=== PATIENT | female | born 1950 | race Caucasian/White ===

== ENCOUNTER 2020-06-17 18:13 | Inpatient (IN) | payer MEDICARE ==
[~2020-06-17] VITALS: Ht 167.6 cm; Wt 104.8 kg
[2020-06-17] MEDS ORDERED: FAMOTIDINE20 MG PO (21:24)
[2020-06-17] MEDS ORDERED: ATORVASTATIN CA80 MG PO (21:24)
[2020-06-17] MEDS ORDERED: LISINOPRIL10 MG PO (21:25)
[2020-06-17] MEDS ORDERED: TIZANIDINE HCL4 MG PO (21:25)
[2020-06-17] MEDS ORDERED: OXYCODONE HCL30 MG PO (21:26)
[2020-06-17] MEDS ORDERED: AMITIZA24 MCG PO (21:26)
[2020-06-17] MEDS ORDERED: PROZAC 20 MG CA20 MG PO (21:28)
[2020-06-17] MEDS ORDERED: MORPHINE SULFAT60 M1 PO (21:30)
[2020-06-17] MEDS ORDERED: PREGABALIN300 MG PO (21:31)
[2020-06-17] MEDS ORDERED: ELMIRON 100 MG100 MG PO (21:32)
[2020-06-17] MEDS ORDERED: LUBIPROSTONE24 MCG PO (21:33)
[2020-06-18 14:01] LABS: HEMOGLOBIN 9.4 gm/dl (12.3-15.3); RED BLOOD COUNT 3.2 M/UL (4.00-5.10); WHITE BLOOD COUNT 6.1 K/UL (4.5-11.0)
[2020-06-18 14:21] LABS: BUN/CREATININE RATIO 25 (0-10)
[2020-06-19 03:53] LABS: HEMOGLOBIN 8.6 gm/dl (12.3-15.3); RED BLOOD COUNT 2.92 M/UL (4.00-5.10); WHITE BLOOD COUNT 6.3 K/UL (4.5-11.0)
[2020-06-19 04:02] LABS: BUN/CREATININE RATIO 21 (0-10)
--- NOTE | 2020-06-19 15:27 | NUR ---
1235 Patient returned to room per PACU Staff. Respirations even/unlabored. O2 sat 99%, 02 in use at 2L/m per N/C. Skin color pale, warm/dry to touch. Surgical dressing dry/intact to RLE. Patient sleepy, but arouses easily. No c/o pain voiced at this time. Call light in reach.
[2020-06-20 07:20] LABS: RED BLOOD COUNT 2.14 M/UL (4.00-5.10)
[2020-06-20 07:41] LABS: BUN/CREATININE RATIO 24 (0-10)
[2020-06-20 08:08] LABS: RED BLOOD COUNT 2.11 M/UL (4.00-5.10); WHITE BLOOD COUNT 6.6 K/UL (4.5-11.0)
[2020-06-20 08:14] LABS: HEMOGLOBIN 6.2 gm/dl (12.3-15.3)
[2020-06-21 02:35] LABS: HEMOGLOBIN 7.8 gm/dl (12.3-15.3); RED BLOOD COUNT 2.64 M/UL (4.00-5.10); WHITE BLOOD COUNT 7.3 K/UL (4.5-11.0)
[2020-06-21 02:54] LABS: BUN/CREATININE RATIO 17 (0-10)
[2020-06-22 03:07] LABS: HEMOGLOBIN 8.1 gm/dl (12.3-15.3); RED BLOOD COUNT 2.74 M/UL (4.00-5.10); WHITE BLOOD COUNT 8.3 K/UL (4.5-11.0)
--- NOTE | 2020-06-23 02:17 | NUR ---
ONE WHITE PILL FOUND IN ROOM BY THE PATIENT'S BED ON THE FLOOR BY FABI SAHU. IDENTIFIED PERCOCET 10MG. CALLED PHARMACY AND THEY INFORMED ME THAT THEY DO NOT CARRY 10MG PERCOCET. OSVALDO JAMIL WITNESSED PILL AT THE SAME TIME THIS RN FOUND OUT ABOUT PILL. PATIENT STATED SHE DID NOT HAVE ANY OF HER HOME MEDICATION ON HER AND SHE ALSO STATED THAT SHE DOES NOT TAKE PERCOCET. NO RECORD OF MEDICATIONS BEING PLACED IN PHARMACY UPON PATIENT ARRIVAL TO THE HOSPITAL. PHARMACY NOTIFIED. MEDICATION DISCARDED IN THE CACTUS WITH OMERO RILEY WITNESS.
[2020-06-23 06:12] LABS: RED BLOOD COUNT 2.33 M/UL (4.00-5.10); WHITE BLOOD COUNT 5.9 K/UL (4.5-11.0)
[2020-06-23 06:13] LABS: HEMOGLOBIN 6.8 gm/dl (12.3-15.3)
[2020-06-23 06:16] LABS: BUN/CREATININE RATIO 16 (0-10)
[2020-06-24 01:52] LABS: HEMOGLOBIN 8.5 gm/dl (12.3-15.3); WHITE BLOOD COUNT 6.8 K/UL (4.5-11.0)
[2020-06-24 02:09] LABS: BUN/CREATININE RATIO 18 (0-10)
--- NOTE | 2020-06-24 03:07 | NUR ---
LATE ENTRY 1829 ON 06/23/20- DAYSHIFT NURSE FRANCIA CALLED DR. ALEXANDRE ABOUT PT TEMPERATURE POST TRANSFUSION. SHE INFORMED HIM SHE GAVE THE PATIENT TYLENOL. LATE ENTRY 1909- PLACED BLOOD TRANSFUSION PAPER IN TUBE SYSTEM AND SENT TO LAB AFTER 1 HOUR POST TRANSFUSION VITAL OBTAINED. WAS UNAWARE THAT LAB WAS NOT NOTIFIED ABOUT SUSPECTED BLOOD TRANSFUSION REACTION DUE TO INCREASE IN TEMPERATURE. 1 HOUR POST TRANSFUSION VITALS SHOWS DECREASE IN TEMPERATURE. 0148 ON 06/24/20- LAB CALLED STATED THEY FOUND THE BLOOD TRANSFUSION PAPER AND THEY NOTED THE SUSPECTED BLOOD TRANSFUSION REACTION. COLLECTED URINE FROM PATIENT AND LAB CAME UP AND COLLECTED BLOOD FROM THE PATIENT. THE UNIT IN QUESTION WAS COLLECTED FROM IV POLE IN PATIENTS ROOM AND SENT DOWN WITH LAB. 0255 ON 06/24/20- NOTIFIED WARD MAID REGARDING THE ISSUE (MENTIONED ABOVE).
[2020-06-24] MEDS ORDERED: OXYCODONE HCL30 MG PO (12:17)
== END 2020-06-24 16:50 | disposition home health service (06) | DRG 467 ==
LOC: M/S 21:18
PROVIDERS: Internal Medicine; Orthopaedic Surgery; ADMIT Family Medicine
PROC: 0SPC0JZ Removal of Synthetic Substitute from Right Knee Joint, Open Approach (ICD-10-PCS; 2020-06-19)
PROC: 0SRC0JA Replacement of Right Knee Joint with Synthetic Substitute, Uncemented, Open Approach (ICD-10-PCS; principal; 2020-06-19 07:30)
DX: S72.491A Other fracture of lower end of right femur, initial encounter for closed fracture (principal); M97.11XA Periprosthetic fracture around internal prosthetic right knee joint, initial encounter; N17.9 Acute kidney failure, unspecified; D62 Acute posthemorrhagic anemia; F11.20 Opioid dependence, uncomplicated; K58.9 Irritable bowel syndrome, unspecified; G47.33 Obstructive sleep apnea (adult) (pediatric); F41.9 Anxiety disorder, unspecified; Z96.651 Presence of right artificial knee joint; E78.5 Hyperlipidemia, unspecified; I10 Essential (primary) hypertension; I73.9 Peripheral vascular disease, unspecified; R50.82 Postprocedural fever; G89.29 Other chronic pain; K21.9 Gastro-esophageal reflux disease without esophagitis; D69.6 Thrombocytopenia, unspecified; W18.39XA Other fall on same level, initial encounter; Z91.81 History of falling; Y93.89 Activity, other specified; Z90.49 Acquired absence of other specified parts of digestive tract; Z90.710 Acquired absence of both cervix and uterus; Z82.49 Family history of ischemic heart disease and other diseases of the circulatory system
CPT/HCPCS: 36415; 36430; 70450; 71045; 73560; 80048; 80053; 81001; 85025; 85027; 85610; 86850; 86900; 86901; 86920; 93005; 94760; 97110; 97116; 97116-GP-CQ; 97161; 97166; 97530-GP-CQ; 97535; C1713; C1776; J0690; J1644; J1650; J1885; J2001; J2250; J2270; J2370; J2405; J2550; J2704; J2710; J3010; J3370; J7030; J7040; J7120; P9016

== ENCOUNTER 2020-07-13 19:57 | Inpatient (IN) | payer MEDICARE ==
[~2020-07-13] VITALS: Ht 167.6 cm; Wt 100.2 kg
[~2020-07-13 19:57] MED LIST: AMITIZA24 MCG PO; ATORVASTATIN CA80 MG PO; ELMIRON 100 MG100 MG PO; FAMOTIDINE20 MG PO; LISINOPRIL10 MG PO; LUBIPROSTONE24 MCG PO; MORPHINE SULFAT60 M1 PO; OXYCODONE HCL30 MG PO; PREGABALIN300 MG PO; PROZAC 20 MG CA20 MG PO; TIZANIDINE HCL4 MG PO
[2020-07-13 20:35] LABS: HEMOGLOBIN 9.9 gm/dl (12.3-15.3); RED BLOOD COUNT 3.41 M/UL (4.00-5.10); WHITE BLOOD COUNT 10.3 K/UL (4.5-11.0)
[2020-07-14 03:37] LABS: HEMOGLOBIN 8.9 gm/dl (12.3-15.3); RED BLOOD COUNT 3.13 M/UL (4.00-5.10); WHITE BLOOD COUNT 8.4 K/UL (4.5-11.0)
[2020-07-14 12:09] LABS: MONONUCLEAR CELLS 2 (75-100); RBC (AUTOMATED) 178100 (0-2000); WBC (AUTOMATED) 44950 (0-200)
[2020-07-14 12:10] LABS: POLYMORPHONUCLEAR % 98 (0-25)
[2020-07-14] MEDS ORDERED: OMEPRAZOLE40 MG PO (12:29)
[2020-07-15 05:50] LABS: HEMOGLOBIN 9.1 gm/dl (12.3-15.3); RED BLOOD COUNT 3.16 M/UL (4.00-5.10)
[2020-07-15 05:52] LABS: WHITE BLOOD COUNT 4.9 K/UL (4.5-11.0)
[2020-07-15 06:13] LABS: BUN/CREATININE RATIO 20 (0-10)
--- NOTE | 2020-07-15 17:38 | NUR ---
CALLED AND SPOKE WITH DR. SIBLEY REGARDING THE PT OUTPUT POST-OPERATIVE. PT HAS BEEN BACK FROM SURGERY AND THE FEELING HAS RETURNED TO HER EXTREMITIES BUT HER OUTPUT AFTER 7 HOURS POST-OPERATIVE WITH FLUIDS GOING AT 100ML AN HOUR HAS ONLY BEEN 150ML. DR. SIBLEY ADVISED TO KEEP THE ESCALONA IN PLACE FOR THE NIGHT TO MONITOR THE PT'S OUTPUT AND ENCOURAGE MORE FLUID INTAKE. WILL CONTINUE TO MONITOR.
[2020-07-16 06:05] LABS: RED BLOOD COUNT 2.29 M/UL (4.00-5.10); WHITE BLOOD COUNT 6.9 K/UL (4.5-11.0)
[2020-07-16 06:06] LABS: HEMOGLOBIN 6.7 gm/dl (12.3-15.3)
[2020-07-16 06:20] LABS: BUN/CREATININE RATIO 26 (0-10)
[2020-07-16 21:15] LABS: HEMOGLOBIN 7.9 gm/dl (12.3-15.3)
[2020-07-17 03:13] LABS: HEMOGLOBIN 8.1 gm/dl (12.3-15.3); WHITE BLOOD COUNT 6.8 K/UL (4.5-11.0)
[2020-07-17 03:15] LABS: RED BLOOD COUNT 2.78 M/UL (4.00-5.10)
[2020-07-17 03:43] LABS: BUN/CREATININE RATIO 14 (0-10)
[2020-07-17 11:14] LABS: PROTEIN, BODY FLUID 4.5 g/dL (.)
[2020-07-18 04:36] LABS: HEMOGLOBIN 7.7 gm/dl (12.3-15.3); RED BLOOD COUNT 2.73 M/UL (4.00-5.10); WHITE BLOOD COUNT 7.2 K/UL (4.5-11.0)
[2020-07-18 04:49] LABS: BUN/CREATININE RATIO 11 (0-10)
[2020-07-19 05:25] LABS: HEMOGLOBIN 7.6 gm/dl (12.3-15.3); RED BLOOD COUNT 2.62 M/UL (4.00-5.10); WHITE BLOOD COUNT 7.1 K/UL (4.5-11.0)
[2020-07-19 05:51] LABS: BUN/CREATININE RATIO 11 (0-10)
[2020-07-20] MEDS ORDERED: ANCEF IV 1000 MG1 GM IV (10:49)
[2020-07-20] MEDS ORDERED: ELIQUIS 2.5 MG2.5 MG PO (10:49)
--- NOTE | 2020-07-20 16:23 | NUR ---
NURSE MADE MULTIPLE ATTEMPTS TO CONTACT [facility] TO GIVE REPORT ON MRS. LIEBERMAN. THESE ATTMEPTS WERE UNSUCCESSFUL. CASE [facility] IS AWARE.
== END 2020-07-20 15:12 | disposition home or self-care (01) | DRG 485 ==
LOC: ER1 19:57 → M/S 21:59 → CDU 21:59 → M/S 22:52
PROVIDERS: Internal Medicine; Internal Medicine Infectious Disease; Orthopaedic Surgery; Physician Assistant; ADMIT Internal Medicine
PROC: 0SPC09Z Removal of Liner from Right Knee Joint, Open Approach (ICD-10-PCS; principal; 2020-07-15 08:35)
PROC: 0J9N0ZZ Drainage of Right Lower Leg Subcutaneous Tissue and Fascia, Open Approach (ICD-10-PCS; principal; 2020-07-15 08:35)
PROC: 0SUV09Z Supplement Right Knee Joint, Tibial Surface with Liner, Open Approach (ICD-10-PCS; principal; 2020-07-15 08:35)
PROC: 30233N1 Transfusion of Nonautologous Red Blood Cells into Peripheral Vein, Percutaneous Approach (ICD-10-PCS; 2020-07-16)
PROC: 02PYX3Z Removal of Infusion Device from Great Vessel, External Approach (ICD-10-PCS; 2020-07-17)
PROC: 02HV33Z Insertion of Infusion Device into Superior Vena Cava, Percutaneous Approach (ICD-10-PCS; 2020-07-17)
DX: T84.53XA Infection and inflammatory reaction due to internal right knee prosthesis, initial encounter (principal); A41.1 Sepsis due to other specified staphylococcus; M00.861 Arthritis due to other bacteria, right knee; L03.115 Cellulitis of right lower limb; N17.9 Acute kidney failure, unspecified; D62 Acute posthemorrhagic anemia; Z20.822 Contact with and (suspected) exposure to COVID-19; Y83.8 Other surgical procedures as the cause of abnormal reaction of the patient, or of later complication, without mention of misadventure at the time of the procedure; E87.6 Hypokalemia; G89.4 Chronic pain syndrome; E78.5 Hyperlipidemia, unspecified; E03.9 Hypothyroidism, unspecified; I10 Essential (primary) hypertension; K58.9 Irritable bowel syndrome, unspecified; K21.9 Gastro-esophageal reflux disease without esophagitis; F41.9 Anxiety disorder, unspecified; G47.33 Obstructive sleep apnea (adult) (pediatric); Y92.9 Unspecified place or not applicable; Z90.710 Acquired absence of both cervix and uterus; Z82.49 Family history of ischemic heart disease and other diseases of the circulatory system; Z90.49 Acquired absence of other specified parts of digestive tract
CPT/HCPCS: 36415; 36430; 36600; 73562; 80048; 80053; 80202; 82803; 82945; 83605; 83615; 84157; 85014; 85018; 85025; 85652; 86140; 86850; 86900; 86901; 86920; 87040; 87070; 87077; 87186; 87205; 97116-GP-CQ; 97161; 97166; 97530-GP-CQ; 97535; 99284; C1776; J0360; J0690; J0696; J1100; J1170; J1650; J2001; J2250; J2270; J2370; J2405; J2550; J2704; J3010; J3370; J7030; J7040; J7070; P9016; U0002

== ENCOUNTER 2020-07-31 17:07 | Inpatient (IN) | payer MEDICARE ==
[~2020-07-31] VITALS: Ht 170.2 cm; Wt 90.7 kg
[~2020-07-31 17:07] MED LIST changes: +ANCEF IV 1000 MG1 GM IV; +ELIQUIS 2.5 MG2.5 MG PO; +OMEPRAZOLE40 MG PO
[2020-07-31 18:32] LABS: RED BLOOD COUNT 2.42 M/UL (4.00-5.10); WHITE BLOOD COUNT 5.7 K/UL (4.5-11.0)
[2020-07-31 18:34] LABS: HEMOGLOBIN 6.8 gm/dl (12.3-15.3)
[2020-07-31 18:57] LABS: BUN/CREATININE RATIO 22 (0-10)
[2020-08-01 04:15] LABS: RED BLOOD COUNT 2.16 M/UL (4.00-5.10)
[2020-08-01 04:16] LABS: HEMOGLOBIN 6.1 gm/dl (12.3-15.3)
[2020-08-01 04:26] LABS: BUN/CREATININE RATIO 19 (0-10)
[2020-08-01] MEDS ORDERED: TIZANIDINE HCL4 MG PO (10:52)
[2020-08-01] MEDS ORDERED: ELMIRON 100 MG100 MG PO (10:52)
[2020-08-01] MEDS ORDERED: LISINOPRIL10 MG PO (10:54)
[2020-08-02 04:20] LABS: RED BLOOD COUNT 3.11 M/UL (4.00-5.10); WHITE BLOOD COUNT 7.3 K/UL (4.5-11.0)
[2020-08-02 04:45] LABS: BUN/CREATININE RATIO 20 (0-10)
[2020-08-03 04:13] LABS: HEMOGLOBIN 9.1 gm/dl (12.3-15.3); RED BLOOD COUNT 3.18 M/UL (4.00-5.10); WHITE BLOOD COUNT 6.9 K/UL (4.5-11.0)
[2020-08-03 04:37] LABS: BUN/CREATININE RATIO 17 (0-10)
[2020-08-04 05:11] LABS: RED BLOOD COUNT 3.17 M/UL (4.00-5.10); WHITE BLOOD COUNT 7.2 K/UL (4.5-11.0)
[2020-08-04 05:36] LABS: BUN/CREATININE RATIO 22 (0-10)
[2020-08-05 04:58] LABS: HEMOGLOBIN 8.5 gm/dl (12.3-15.3); RED BLOOD COUNT 2.97 M/UL (4.00-5.10); WHITE BLOOD COUNT 6.7 K/UL (4.5-11.0)
[2020-08-05 05:26] LABS: BUN/CREATININE RATIO 23 (0-10)
[2020-08-06 04:31] LABS: HEMOGLOBIN 9.4 gm/dl (12.3-15.3); WHITE BLOOD COUNT 8.2 K/UL (4.5-11.0)
[2020-08-06 04:37] LABS: RED BLOOD COUNT 3.32 M/UL (4.00-5.10)
[2020-08-06 04:47] LABS: BUN/CREATININE RATIO 23 (0-10)
[2020-08-07 04:19] LABS: HEMOGLOBIN 8.9 gm/dl (12.3-15.3); RED BLOOD COUNT 3.14 M/UL (4.00-5.10); WHITE BLOOD COUNT 6.9 K/UL (4.5-11.0)
[2020-08-07 04:49] LABS: BUN/CREATININE RATIO 19 (0-10)
[2020-08-08 07:06] LABS: BUN/CREATININE RATIO 22 (0-10)
[2020-08-09 05:57] LABS: HEMOGLOBIN 8.7 gm/dl (12.3-15.3); RED BLOOD COUNT 3.07 M/UL (4.00-5.10)
[2020-08-09 06:36] LABS: BUN/CREATININE RATIO 18 (0-10)
[2020-08-10 04:48] LABS: HEMOGLOBIN 8.8 gm/dl (12.3-15.3); RED BLOOD COUNT 3.19 M/UL (4.00-5.10); WHITE BLOOD COUNT 5.9 K/UL (4.5-11.0)
[2020-08-10 07:49] LABS: BUN/CREATININE RATIO 16 (0-10)
[2020-08-12] MEDS ORDERED: DOCUSATE SODIU100 MG PO (08:57)
[2020-08-12] MEDS ORDERED: SENNA LAX8.6 MG PO (08:57)
[2020-08-12] MEDS ORDERED: POLYETHYLENE GL17 GM PO (08:57)
[2020-08-12] MEDS ORDERED: LISINOPRIL10 MG PO (08:57)
[2020-08-12] MEDS ORDERED: HYGROTON TAB 2525 MG PO (08:57)
[2020-08-12] MEDS ORDERED: MORPHINE SULFAT60 M1 PO (11:34)
[2020-08-12] MEDS ORDERED: OXYCODONE HCL30 MG PO (11:34)
== END 2020-08-12 12:41 | disposition home or self-care (01) | DRG 549 ==
LOC: ER1 17:07 → M/S 22:00 → CDU 22:00 → M/S 08-01 15:35 → MED SURG 4 08-08 21:30 → M/S 08-08 22:30
PROVIDERS: Internal Medicine; Physician Assistant; Physician Assistant Medical; ADMIT Internal Medicine
PROC: 30233N1 Transfusion of Nonautologous Red Blood Cells into Peripheral Vein, Percutaneous Approach (ICD-10-PCS; principal; 2020-07-31)
DX: M00.9 Pyogenic arthritis, unspecified (principal); F11.20 Opioid dependence, uncomplicated; J81.1 Chronic pulmonary edema; D62 Acute posthemorrhagic anemia; I10 Essential (primary) hypertension; E66.01 Morbid (severe) obesity due to excess calories; Z20.822 Contact with and (suspected) exposure to COVID-19; G47.33 Obstructive sleep apnea (adult) (pediatric); K58.9 Irritable bowel syndrome, unspecified; F41.9 Anxiety disorder, unspecified; K21.9 Gastro-esophageal reflux disease without esophagitis; Z90.710 Acquired absence of both cervix and uterus; Z96.651 Presence of right artificial knee joint; Z90.49 Acquired absence of other specified parts of digestive tract; E87.6 Hypokalemia; R50.9 Fever, unspecified; R31.9 Hematuria, unspecified; Z79.899 Other long term (current) drug therapy; Z79.01 Long term (current) use of anticoagulants
CPT/HCPCS: ECHO; 0240U; 36415; 36430; 71045; 73552; 73560; 80048; 80053; 80202; 81001; 82272; 82550; 82553; 82728; 83036; 83540; 83550; 83605; 83735; 83874; 83880; 84439; 84443; 84484; 85014; 85018; 85025; 85027; 85379; 85652; 86140; 86850; 86870; 86900; 86901; 86920; 86922; 87040; 87086; 93005; 93306; 93971; 94760; 96374; 97110; 97110-GP-CQ; 97116; 97116-GP-CQ; 97161; 97166; 97530-GP-CQ; 97535; 99285; G0378; J0692; J1940; J2270; J2405; J2997; J3370; J7030; J7050; J7070; P9016; Q9967

== ENCOUNTER 2020-09-10 16:29 | Emergency (ER) | payer MEDICARE ==
[~2020-09-10 16:29] MED LIST changes: +DOCUSATE SODIU100 MG PO; +HYGROTON TAB 2525 MG PO; +POLYETHYLENE GL17 GM PO; +SENNA LAX8.6 MG PO
[2020-09-10 18:44] LABS: HEMOGLOBIN 12.2 gm/dl (12.3-15.3); RED BLOOD COUNT 4.35 M/UL (4.00-5.10); WHITE BLOOD COUNT 6.5 K/UL (4.5-11.0)
[2020-09-10 19:09] LABS: BUN/CREATININE RATIO 27 (0-10)
[2020-09-10] MEDS ORDERED: K-DUR TAB 20 M20 MEQ PO (20:35)
[2020-09-10] MEDS ORDERED: LEVOFLOXACIN500 MG PO (20:35)
== END 2020-09-10 21:15 | disposition home or self-care (01) ==
LOC: ER1 16:29
PROVIDERS: Emergency Medicine
DX: N30.91 Cystitis, unspecified with hematuria (principal); E87.6 Hypokalemia; I10 Essential (primary) hypertension
CPT/HCPCS: 80053; 81001; 85025; 87086; 93005; 96374; 99284; J3480

== ENCOUNTER 2020-11-07 13:42 | Observation (INO) | payer MEDICARE ==
[~2020-11-07] VITALS: Ht 167.6 cm; Wt 96.6 kg
[~2020-11-07 13:42] MED LIST changes: +K-DUR TAB 20 M20 MEQ PO; +LEVOFLOXACIN500 MG PO
[2020-11-07 14:37] LABS: HEMOGLOBIN 9.4 gm/dl (12.3-15.3); RED BLOOD COUNT 3.35 M/UL (4.00-5.10); WHITE BLOOD COUNT 4.9 K/UL (4.5-11.0)
[2020-11-07 14:47] LABS: BUN/CREATININE RATIO 20 (0-10)
[2020-11-07] MEDS ORDERED: ZESTRIL10 MG PO (18:38)
[2020-11-07] MEDS ORDERED: CEPHALEXIN500 MG PO (18:43)
[2020-11-07] MEDS ORDERED: OXYCODONE HCL30 MG PO (18:44)
[2020-11-07] MEDS ORDERED: CENTRUM SILVER1 EAC4 PO (18:45)
[2020-11-07] MEDS ORDERED: VITAMIN D 40400 UNIT PO (18:45)
[2020-11-07] MEDS ORDERED: VITAMIN C500 M4 PO (18:46)
[2020-11-07] MEDS ORDERED: ADVIL PM CAPLE1 EACH PO (18:47)
[2020-11-08 04:36] LABS: HEMOGLOBIN 9.8 gm/dl (12.3-15.3); RED BLOOD COUNT 3.49 M/UL (4.00-5.10); WHITE BLOOD COUNT 4.5 K/UL (4.5-11.0)
[2020-11-08 05:07] LABS: BUN/CREATININE RATIO 18 (0-10)
[2020-11-09 05:35] LABS: HEMOGLOBIN 9.4 gm/dl (12.3-15.3); RED BLOOD COUNT 3.37 M/UL (4.00-5.10)
[2020-11-09 05:41] LABS: WHITE BLOOD COUNT 6.4 K/UL (4.5-11.0)
[2020-11-09 06:24] LABS: BUN/CREATININE RATIO 19 (0-10)
== END 2020-11-09 16:17 | disposition home or self-care (01) ==
LOC: ER1 13:42 → CDU 16:53 → PROG CARE 16:53
PROVIDERS: Emergency Medicine; Physician Assistant Medical; ADMIT Internal Medicine Infectious Disease
PROC: 0JH606Z Insertion of Pacemaker, Dual Chamber into Chest Subcutaneous Tissue and Fascia, Open Approach (ICD-10-PCS; principal; 2020-11-08)
PROC: 02H63JZ Insertion of Pacemaker Lead into Right Atrium, Percutaneous Approach (ICD-10-PCS; 2020-11-08)
PROC: 02HK3JZ Insertion of Pacemaker Lead into Right Ventricle, Percutaneous Approach (ICD-10-PCS; 2020-11-08)
DX: I44.1 Atrioventricular block, second degree (principal); I11.0 Hypertensive heart disease with heart failure; I50.9 Heart failure, unspecified; M25.561 Pain in right knee; K58.9 Irritable bowel syndrome, unspecified; D64.89 Other specified anemias; F11.20 Opioid dependence, uncomplicated; G47.33 Obstructive sleep apnea (adult) (pediatric); N30.00 Acute cystitis without hematuria; K21.9 Gastro-esophageal reflux disease without esophagitis; E78.5 Hyperlipidemia, unspecified; E66.01 Morbid (severe) obesity due to excess calories; Z68.34 Body mass index [BMI] 34.0-34.9, adult; Z20.822 Contact with and (suspected) exposure to COVID-19; Z96.651 Presence of right artificial knee joint; Z79.01 Long term (current) use of anticoagulants; Z79.899 Other long term (current) drug therapy; Z90.49 Acquired absence of other specified parts of digestive tract
CPT/HCPCS: 33208; 51702; 70450; 71045; 73562; 80048; 80053; 81001; 82550; 82553; 83605; 83690; 83735; 83874; 83880; 84439; 84443; 84484; 85025; 85027; 85652; 86140; 93005; 99152; 99153; 99285; C1785; C1898; G0378; J0696; J1644; J2250; J2270; J3010; J3370; J7040; J7050; J7070; U0002

== ENCOUNTER → 2020-12-19 | Outpatient (CLI) | payer MEDICARE ==
[~2020-12-19] MED LIST changes: +ADVIL PM CAPLE1 EACH PO; +CENTRUM SILVER1 EAC4 PO; +CEPHALEXIN500 MG PO; +VITAMIN C500 M4 PO; +VITAMIN D 40400 UNIT PO; +ZESTRIL10 MG PO
== END ==
LOC: LBRF 17:23
DX: N39.0 Urinary tract infection, site not specified (principal); R31.9 Hematuria, unspecified
CPT/HCPCS: 87086

== ENCOUNTER → 2021-07-22 | Outpatient (CLI) | payer OTHER | LOC: LAB 15:05 | DX: T84.50XA Infection and inflammatory reaction due to unspecified internal joint prosthesis, initial encounter (principal) | CPT/HCPCS: 36415; 85652; 86140 ==

== ENCOUNTER 2021-12-07 13:23 | Inpatient (IN) | payer OTHER ==
[~2021-12-07] VITALS: Ht 162.6 cm; Wt 102.1 kg
[~2021-12-07 13:23] MED LIST changes: -OMEPRAZOLE40 MG PO; +OXYCODONE HCL20 MG PO
[2021-12-07 14:11] LABS: RED BLOOD COUNT 3.31 M/UL (4.00-5.10)
[2021-12-07] MEDS ORDERED: MORPHINE SULFAT30 M4 PO (17:49)
[2021-12-07] MEDS ORDERED: BUSPAR 10MG10 MG PO (17:50)
[2021-12-07] MEDS ORDERED: IBUPROFEN800 MG PO (17:50)
[2021-12-07] MEDS ORDERED: LOPRESSOR 25 MG25 MG PO (17:51)
[2021-12-07] MEDS ORDERED: MORPHINE SULFAT15 M2 PO (17:52)
[2021-12-07] MEDS ORDERED: METHOCARBAMOL500 MG PO (17:54)
[2021-12-07] MEDS ORDERED: CLONIDINE HCL0.2 MG PO (17:54)
[2021-12-07] MEDS ORDERED: ARTHRITIS PAIN150 GM TOP (17:55)
[2021-12-07] MEDS ORDERED: VITAMIN B-121000 MC3 PO (17:55)
[2021-12-07] MEDS ORDERED: URECHOLINE 25 M25 MG PO (17:55)
[2021-12-07] MEDS ORDERED: MIRALAX17 GM PO (17:56)
[2021-12-07] MEDS ORDERED: VITAMIN D325 MCG PO (17:56)
[2021-12-08 03:23] LABS: HEMOGLOBIN 10.4 gm/dl (12.3-15.3); RED BLOOD COUNT 3.45 M/UL (4.00-5.10); WHITE BLOOD COUNT 5.3 K/UL (4.5-11.0)
[2021-12-08 03:53] LABS: BUN/CREATININE RATIO 20 (0-10)
[2021-12-08] MEDS ORDERED: LEVOFLOXACIN750 MG PO (09:16)
[2021-12-09 08:36] LABS: BUN/CREATININE RATIO 17 (0-10)
[2021-12-10 07:37] LABS: HEMOGLOBIN 10.6 gm/dl (12.3-15.3); RED BLOOD COUNT 3.46 M/UL (4.00-5.10); WHITE BLOOD COUNT 6.1 K/UL (4.5-11.0)
[2021-12-10 08:11] LABS: BUN/CREATININE RATIO 16 (0-10)
[2021-12-10] MEDS ORDERED: LOPRESSOR 50 MG50 MG PO (11:00)
[2021-12-10] MEDS ORDERED: ASPIRIN EC81 MG PO (12:21)
[2021-12-10] MEDS ORDERED: PROTONIX 40 MG40 M1 PO (12:21)
--- NOTE | 2021-12-10 15:14 | NUR ---
CALLED REPORT TO [facility], SPOKE WITH OSVALDO FRENCH AT THIS TIME AND MADE HER AWARE OF REFERRAL AND ABOUT PATIENTS PLAN OF CARE.
== END 2021-12-10 15:46 | disposition home health service (06) | DRG 689 ==
LOC: ER1 13:23 → CDU 16:52 → M/S 16:52
PROVIDERS: Family Medicine; Physician Assistant Medical; ADMIT Internal Medicine
DX: N39.0 Urinary tract infection, site not specified (principal); G92.9 Unspecified toxic encephalopathy; F11.20 Opioid dependence, uncomplicated; B96.5 Pseudomonas (aeruginosa) (mallei) (pseudomallei) as the cause of diseases classified elsewhere; G89.29 Other chronic pain; K21.9 Gastro-esophageal reflux disease without esophagitis; I10 Essential (primary) hypertension; G47.33 Obstructive sleep apnea (adult) (pediatric); R27.0 Ataxia, unspecified; R29.6 Repeated falls; K58.9 Irritable bowel syndrome, unspecified; G62.9 Polyneuropathy, unspecified; E78.5 Hyperlipidemia, unspecified; I44.1 Atrioventricular block, second degree; T39.95XA Adverse effect of unspecified nonopioid analgesic, antipyretic and antirheumatic, initial encounter; Z95.0 Presence of cardiac pacemaker; Z87.440 Personal history of urinary (tract) infections; Z90.710 Acquired absence of both cervix and uterus; Z90.49 Acquired absence of other specified parts of digestive tract; Z82.49 Family history of ischemic heart disease and other diseases of the circulatory system
CPT/HCPCS: 36415; 70450; 70496; 70498; 71045; 72125; 73562; 80048; 80053; 81001; 82550; 82553; 82962; 83735; 84132; 84484; 85025; 85027; 85610; 87040; 87077; 87086; 87186; 93005; 96374; 97116-GP-CQ; 97162; 97166; 97530; 97530-GP-CQ; 99285; J0696; J1650; J2270; J2405; J2543; Q9967